=== PATIENT | female | born 1950 | race Caucasian/White ===

== ENCOUNTER 2017-06-09 09:20 | Day surgery (SDC) | payer MEDICARE, OTHER ==
[~2017-06-09 09:20] MED LIST: BUPIVACAINE HCL 0.75% INJ/PF (7.5 MG/1 ML) 10 ML SDV OD PRN; CHONDR SU A NA/HYALUR INTRAOC KIT (SURGICARE) ONE; EPINEPHRINE INJ/PF 1 MG/1 ML AMPULE ONE; KETOROLAC TROMETHAMINE 0.45% 4 DROP/0.4 ML DROPERETTE OD PRN; LIDOCAINE 1% INJ-PF (10 MG/ML) 30 ML SDV ONE; LIDOCAINE 4% INJ/PF (40 MG/ML) 5 ML AMPUL OD PRN
[2017-06-09] MEDS: TROPICAMIDE 1% OPH SOLN 3 ML OD PRN ×3 (09:47→10:14)
[2017-06-09] MEDS: BESIFLOXACIN HCL 0.6% OPH SUSP 5 ML BOTTLE OD PRN ×3 (09:48→11:12)
[2017-06-09] MEDS: CYCLOPENTOLATE 0.2%/PHENYLEPHRINE 1% OPH SOLN 2 ML OD PRN ×3 (09:48→10:14)
[2017-06-09] MEDS: TETRACAINE HCL 0.5% OPH SOLN 0.6 ML DROPERETTE OD PRN ×2 (09:49→10:16)
[2017-06-09] MEDS ORDERED: MIDAZOLAM 2 MG/2 ML INJ ONE (10:18)
[2017-06-09] MEDS ORDERED: FENTANYL CITRATE INJ/PF 100 MCG/2 ML AMPUL ONE (10:18)
--- NOTE | 2017-06-09 11:29 | [facility] OPERATIVE REPORT E ---
[facility] Operative Report NAME: JOE BERRY AGE: 67Y DATE OF SURGERY: 06/09/2017 ROOM: PREOPERATIVE DIAGNOSIS: Cataract, right eye. POSTOPERATIVE DIAGNOSIS: Cataract, right eye. PROCEDURE PERFORMED: Phacoemulsification with toric intraocular lens, right eye. SURGEON: Beth David MD ANESTHESIA: Topical with MAC plus intraocular. PROCEDURE: The patient was brought to the operating room and placed on the operative table. Following tetracaine drops, topical anesthesia was administered. This consisted of instrument wipe pledgets soaked in a solution of 4% Xylocaine mixed with 0.75% Marcaine in a 1:2 ratio. A 2 x 1 cm pledget was placed in the superior fornix. A 1 x 1 cm pledget was placed in the inferior fornix. The eye was patched shut for 5 minutes. The patch was removed. The eye was sterilely prepped and draped in the usual manner. Lid speculum was placed in the eye. The pledgets were removed. 4-0 black silk sutures were placed around the superior and the inferior rectus muscles to be used as traction. A conjunctival peritomy was made at the 10 o'clock position. Hemostasis was obtained with bipolar cautery. A posterior limbal groove was created using a crescent knife and dissected anteriorly towards the cornea. A sharp point blade was used to create a paracentesis site at the 2 o'clock position. A 2.4 mm keratome was used to enter the anterior chamber through the groove. Viscoelastic was injected into the anterior chamber. An anterior capsulotomy was performed using Utrata forceps in a capsulorrhexis fashion. Hydrodissection and hydrodelineation were performed. Phacoemulsification was performed in pajyry-peb-fcogszi technique. A total of 42 seconds phaco time was used. Following this, the I/A unit was used to remove residual cortex. Viscoelastic was injected into the capsular bag. Intraocular lens model [id number], 14.5 diopters, serial number [id number] was placed in the capsular bag. The I/A unit was used to remove residual viscoelastic. The wound was seen to be watertight under high and low pressure, and no sutures were placed. The intraocular lens was well centered. The pressure was adjusted in the eye to normal pressure. The 4-0 black silk sutures and lid speculum were removed. The eye was shielded after Besivance drops were placed. The patient tolerated the procedure well and was sent to the recovery room in good condition. Prior to the beginning of the surgery, patient was placed in the seated position and the 0, 270, and 180 degree axis of the eye was marked using a marking level. Prior to placing the lens implant, the 35-degree axis was marked on the eye and the lens was centered at this axis. DICTATING PHYSICIAN: BETH DAVID M.D. [id number] PHY#: [id number] ID: [id number] JOB#: [id number] ACCT: [id number] cc:BETH DAVID M.D. >
--- NOTE | 2017-06-09 11:29 | [facility] DISCHARGE SUMMARY E ---
[facility] Discharge Summary NAME: JOE BERRY AGE: 67Y ADMITTED: 06/09/2017 DISCHARGED: 06/09/2017 PREOPERATIVE DIAGNOSIS: Cataract, right eye. POSTOPERATIVE DIAGNOSIS: Cataract, right eye. HOSPITAL COURSE: The patient is a 67-year-old lady who underwent uneventful cataract extraction with toric intraocular lens implant, right eye, on 06/09/2017. She will be discharged to home. She was instructed to resume preoperative medications, take Tylenol as needed for discomfort, to keep her eye shielded, to use Besivance, Durezol, and Ilevro at 3 p.m. and 8 p.m., and to followup in my office in 1 day. DICTATING PHYSICIAN: LACI DAVID M.D. [id number] PHY#: [id number] ID: [id number] JOB#: [id number] ACCT: [id number] cc:LACI DAVID M.D. >
[2017-06-09] MEDS ORDERED: ONDANSETRON HCL INJ/PF 4 MG/2 ML SDV ONE (11:41)
[2017-06-09] MEDS ORDERED: PROMETHAZINE HCL INJ 25 MG/1 ML VIAL ONE (12:04)
== END 2017-06-09 13:18 | disposition home or self-care (01) ==
LOC: SC 09:20
PROVIDERS: ATTEND Ophthalmology
PROC: 08RJ3JZ Replacement of Right Lens with Synthetic Substitute, Percutaneous Approach (ICD-10-PCS; principal; 2017-06-09 11:00)
DX: H25.813 Combined forms of age-related cataract, bilateral (principal); H40.013 Open angle with borderline findings, low risk, bilateral; H43.813 Vitreous degeneration, bilateral; I10 Essential (primary) hypertension; M19.90 Unspecified osteoarthritis, unspecified site; Z88.8 Allergy status to other drugs, medicaments and biological substances; Z79.82 Long term (current) use of aspirin; Z79.899 Other long term (current) drug therapy
CPT/HCPCS: 66984; V2787; J2250; J3490 ×4; J0171; J3010; J2550; J2405; 142

== ENCOUNTER 2017-07-07 10:29 | Day surgery (SDC) | payer OTHER ==
[~2017-07-07 10:29] MED LIST changes: -BUPIVACAINE HCL 0.75% INJ/PF (7.5 MG/1 ML) 10 ML SDV OD PRN; +BUPIVACAINE HCL 0.75% INJ/PF (7.5 MG/1 ML) 10 ML SDV OS PRN; -KETOROLAC TROMETHAMINE 0.45% 4 DROP/0.4 ML DROPERETTE OD PRN; +KETOROLAC TROMETHAMINE 0.45% 4 DROP/0.4 ML DROPERETTE OS PRN; -LIDOCAINE 1% INJ-PF (10 MG/ML) 30 ML SDV ONE; -LIDOCAINE 4% INJ/PF (40 MG/ML) 5 ML AMPUL OD PRN; +MIDAZOLAM 2 MG/2 ML INJ ONE
[2017-07-07] MEDS: TROPICAMIDE 1% OPH SOLN 3 ML OS PRN ×3 (10:58→11:33)
[2017-07-07] MEDS: CYCLOPENTOLATE 0.2%/PHENYLEPHRINE 1% OPH SOLN 2 ML OS PRN ×3 (10:58→11:33)
[2017-07-07] MEDS: BESIFLOXACIN HCL 0.6% OPH SUSP 5 ML BOTTLE OS PRN ×2 (10:59→11:34)
[2017-07-07] MEDS: TETRACAINE HCL 0.5% OPH SOLN 0.6 ML DROPERETTE OS PRN ×2 (11:00→11:34)
[2017-07-07] MEDS ORDERED: EPINEPHRINE INJ/PF 1 MG/1 ML AMPULE ONE (11:19)
[2017-07-07] MEDS ORDERED: ONDANSETRON HCL INJ/PF 4 MG/2 ML SDV ONE (11:36)
[2017-07-07] MEDS: LIDOCAINE 4% INJ/PF (40 MG/ML) 5 ML AMPUL OS PRN ×2 (11:48→11:57)
--- NOTE | 2017-07-07 12:39 | [facility] OPERATIVE REPORT E ---
[facility] Operative Report NAME: JOE BERRY AGE: 67Y DATE OF SURGERY: 07/07/2017 ROOM: PREOPERATIVE DIAGNOSES: 1. Cataract, left eye. 2. Astigmatism, left eye. POSTOPERATIVE DIAGNOSES: 1. Cataract, left eye. 2. Astigmatism, left eye. PROCEDURE PERFORMED: Phacoemulsification with toric intraocular lens implant, left eye. SURGEON: Beth David MD ANESTHESIA: Topical with MAC plus intraocular lidocaine. PROCEDURE: The patient was brought to the operating room and placed on the operative table. Following tetracaine drops, topical anesthesia was administered. This consisted of instrument wipe pledgets soaked in a solution of 4% Xylocaine mixed with 0.75% Marcaine in a 1:2 ratio. A 2 x 1 cm pledget was placed in the superior fornix. A 1 x 1 cm pledget was placed in the inferior fornix. The eye was patched shut for 5 minutes. The patch was removed. The eye was sterilely prepped and draped in the usual manner. Lid speculum was placed in the eye. The pledgets were removed. 4-0 black silk sutures were placed around the superior and the inferior rectus muscles to be used as traction. A conjunctival peritomy was made at the 10 o'clock position. Hemostasis was obtained with bipolar cautery. A posterior limbal groove was created using a crescent knife and dissected anteriorly towards the cornea. A sharp point blade was used to create a paracentesis site at the 2 o'clock position. A 2.4 mm keratome was used to enter the anterior chamber through the groove. Viscoelastic was injected into the anterior chamber. An anterior capsulotomy was performed using Utrata forceps in a capsulorrhexis fashion. Hydrodissection and hydrodelineation were performed. Phacoemulsification was performed in ysblqp-whz-lxcddcl technique. A total of 8.17 CDE phaco time was used. Following this, the I/A unit was used to remove residual cortex. Viscoelastic was injected into the capsular bag. Intraocular lens model [id number], 18.5 diopters, serial number [id number] was placed in the capsular bag. The I/A unit was used to remove residual viscoelastic. The wound was seen to be watertight under high and low pressure, and no sutures were placed. The intraocular lens was well centered. The pressure was adjusted in the eye to normal pressure. The 4-0 black silk sutures and lid speculum were removed. The eye was shielded after Besivance drops were placed. The patient tolerated the procedure well and was sent to the recovery room in good condition. Prior to the surgery, patient was placed in the seating position and the 0, 270, and 180 degree axis of the eye was marked using a marking level. Prior to placing the lens implant, the 120 degree axis was marked on the eye using the previously marked sites as reference. The lens was centered at this axis. DICTATING PHYSICIAN: BETH DAVID M.D. [id number] PHY#: [id number] ID: [id number] JOB#: [id number] ACCT: [id number] cc:BETH DAVID M.D. >
--- NOTE | 2017-07-07 12:39 | [facility] DISCHARGE SUMMARY E ---
[facility] Discharge Summary NAME: JOE BERRY AGE: 67Y ADMITTED: 07/07/2017 DISCHARGED: 07/07/2017 PREOPERATIVE DIAGNOSES: 1. Cataract, left eye. 2. Astigmatism, left eye. POSTOPERATIVE DIAGNOSES: 1. Cataract, left eye. 2. Astigmatism, left eye. HOSPITAL COURSE: The patient is a 67-year-old lady who underwent uneventful cataract extraction with toric intraocular lens implant, left eye, on 07/07/2017. She will be discharged to home. She was instructed to resume preoperative medications, take Tylenol as needed for discomfort, to keep her eye shielded, to use Besivance, Durezol, and Ilevro at 3 p.m. and 8 p.m., and to followup in my office in 1 day. In addition, to use Combigan at 3 p.m. and 8 p.m. DICTATING PHYSICIAN: LACI DAVID M.D. [id number] PHY#: [id number] ID: [id number] JOB#: [id number] ACCT: [id number] cc:LCAI DAVID M.D. >
== END 2017-07-07 13:12 | disposition home or self-care (01) ==
LOC: SC 10:29
PROVIDERS: ATTEND Ophthalmology
DX: H25.812 Combined forms of age-related cataract, left eye (principal); H52.202 Unspecified astigmatism, left eye; Z96.1 Presence of intraocular lens; I10 Essential (primary) hypertension; Z79.899 Other long term (current) drug therapy; Z88.8 Allergy status to other drugs, medicaments and biological substances
CPT/HCPCS: 66984; V2787; J2250; J3490 ×3; J0171; J2405; 142

== ENCOUNTER 2018-11-25 06:46 | Day surgery (SDC) | payer OTHER ==
[2018-11-24 11:03] LABS: HEMATOCRIT 40.6 % (36.0-47.0); HEMOGLOBIN 13.5 g/dL (12.0-15.5); MEAN CORPUSCULAR HEMOGLOBIN 30.1 pg (27.0-33.4); MEAN CORPUSCULAR HGB CONC 33.2 g/dL (32.0-36.0); MEAN CORPUSCULAR VOLUME 91 fl (80-97); PLATELET COUNT 219 10^3/uL (150-450); RED BLOOD COUNT 4.48 10^6/uL (3.72-5.28); RED CELL DISTRIBUTION WIDTH 13.5 % (11.5-14.0); WHITE BLOOD COUNT 4.7 10^3/uL (4.0-10.5)
[2018-11-24 11:08] LABS: APPEARANCE,URINE CLEAR; BILIRUBIN,URINE NEGATIVE (NEGATIVE); COLOR,URINE YELLOW; GLUCOSE, URINE NEGATIVE (NEGATIVE); KETONES,URINE NEGATIVE (NEGATIVE); LEUKOCYTE ESTERASE,URINE LARGE (NEGATIVE); NITRITE,URINE NEGATIVE (NEGATIVE); PROTEIN,URINE NEGATIVE (NEGATIVE); URINE SPECIFIC GRAVITY 1.018; UROBILINOGEN,URINE NEGATIVE mg/dL (<2.0)
[2018-11-24 11:33] LABS: ALBUMIN 4.5 g/dL (3.5-5.0); ALKALINE PHOSPHATASE 89 U/L (38-126); ANION GAP 6 (5-19); ASPARTATE AMINO TRANSFERASE 26 U/L (14-36); BILIRUBIN,DIRECT 0.2 mg/dL (0.0-0.4); BILIRUBIN,TOTAL 0.4 mg/dL (0.2-1.3); BLOOD UREA NITROGEN 23 mg/dL (7-20); CALCIUM 9.2 mg/dL (8.4-10.2); CARBON DIOXIDE 30 mmol/L (22-30); CHLORIDE 103 mmol/L (98-107); GLUCOSE 89 mg/dL (75-110); POTASSIUM 4.5 mmol/L (3.6-5.0)
--- NOTE | 2018-11-24 12:07 | RADIOLOGY REPORT (SQ) ---
EXAM DESCRIPTION: CHEST PA/LATERAL COMPLETED DATE/TIME: 11/24/2018 11:01 am REASON FOR STUDY: PRE-OP COMPARISON: None. EXAM PARAMETERS: NUMBER OF VIEWS: two views TECHNIQUE: Digital Frontal and Lateral radiographic views of the chest acquired. RADIATION DOSE: NA LIMITATIONS: none FINDINGS: LUNGS AND PLEURA: No opacities, masses or pneumothorax. No pleural effusion. MEDIASTINUM AND HILAR STRUCTURES: No masses or contour abnormalities. HEART AND VASCULAR STRUCTURES: Heart normal size. No evidence for failure. Aortic atherosclerosis p er BONES: No acute findings. Mild anterior wedging of the lower thoracic vertebral body, likely physiol ogic. HARDWARE: None in the chest. OTHER: No other significant finding. IMPRESSION: No evidence of acute cardiopulmonary process. TECHNICAL DOCUMENTATION: JOB ID: [id number] [employer]- All Rights Reserved Reading location - IP/workstation name: [email or web address]
--- NOTE | 2018-11-24 14:37 | EKG REPORT ---
SEVERITY:- BORDERLINE ECG - SINUS RHYTHM PROBABLE LEFT ATRIAL ABNORMALITY : Confirmed by: Kieran Taylor 24-Nov-2018 14:37:06
[~2018-11-25 06:46] MED LIST changes: -BUPIVACAINE HCL 0.75% INJ/PF (7.5 MG/1 ML) 10 ML SDV OS PRN; +CEFAZOLIN 1 GM/D5W RTU 1 GM/50 ML RTUPB IV ONE; +CEFAZOLIN 1 GM/D5W RTU 1 GM/50 ML RTUPB IV PRN; -CHONDR SU A NA/HYALUR INTRAOC KIT (SURGICARE) ONE; -EPINEPHRINE INJ/PF 1 MG/1 ML AMPULE ONE; -KETOROLAC TROMETHAMINE 0.45% 4 DROP/0.4 ML DROPERETTE OS PRN; +LIDOCAINE 0.5% INJ-PF (5 MG/ML) 50 ML SDV SUBCUT PRN; -MIDAZOLAM 2 MG/2 ML INJ ONE; +RINGERS SOLUTION,LACTATED 1,000 ML IV PRN
[2018-11-25] MEDS ORDERED: MIDAZOLAM 2 MG/2 ML INJ ONE (06:52)
[2018-11-25] MEDS ORDERED: PROPOFOL INJ 200 MG/20 ML VIAL IV ONE (06:52)
[2018-11-25] MEDS ORDERED: FENTANYL CITRATE INJ/PF 100 MCG/2 ML AMPUL ONE (06:52)
[2018-11-25] MEDS ORDERED: HYDROMORPHONE HCL INJ/PF 2 MG/ML AMPULE ONE (06:52)
[2018-11-25] MEDS ORDERED: SCOPOLAMINE HYDROBROMIDE 1.5 MG PATCH.TD72 ONE (07:43)
[2018-11-25] MEDS ORDERED: FAMOTIDINE INJ/PF 20 MG/2 ML SDV IV ONE (07:43)
[2018-11-25] MEDS ORDERED: METOCLOPRAMIDE HCL INJ/PF 10 MG/2 ML SDV ONE (07:43)
[2018-11-25] MEDS ORDERED: BUPIVACAINE HCL 0.25% /EPINEPHRINE INJ/PF 30 ML SDV ONE (08:24)
[2018-11-25] MEDS ORDERED: METHYLENE BLUE 50 MG/10 ML AMPULE ONE (08:24)
[2018-11-25] MEDS ORDERED: LIDOCAINE 1%/EPINEPHRINE INJ 20 ML VIAL ONE (08:24)
[2018-11-25] MEDS ORDERED: PROMETHAZINE HCL INJ 25 MG/1 ML VIAL ONE (08:54)
[2018-11-25] MEDS ORDERED: DIPHENHYDRAMINE HCL 50 MG/ML VIAL IV PRN (09:22)
[2018-11-25] MEDS ORDERED: MEPERIDINE HCL/PF INJ 25 MG/1 ML DISP.SYRIN IV PRN (09:22)
[2018-11-25] MEDS ORDERED: ONDANSETRON HCL INJ/PF 4 MG/2 ML SDV IV PRN (09:22)
[2018-11-25] MEDS ORDERED: MORPHINE SULFATE 10 MG/ML INJ IV PRN ×2 (09:22→11:27)
[2018-11-25] MEDS ORDERED: OXYCODONE-ACETAMINOPHEN 5-325 MG TABLET PO PRN ×3 (09:22→11:31)
[2018-11-25] MEDS ORDERED: ESTROGENS,CONJUGATED 0.625 MG/1 GM 30 GM TUBE PV ONE ×2 (09:30)
[2018-11-25] MEDS ORDERED: ACETAMINOPHEN 1,000 MG/100 ML RTUPB IV ONE (10:59)
[2018-11-25] MEDS ORDERED: RINGERS SOLUTION,LACTATED 1,000 ML IV PRN (11:30)
--- NOTE | 2018-11-25 12:39 | Operative Report ---
Operative Report DATE OF SURGERY: 11/25/18 PREOPERATIVE DIAGNOSIS: uterovaginal prolapse, pelvic pain POSTOPERATIVE DIAGNOSIS: utervaginal prolapse, pelvic pain OPERATION: total vaginal hysterectomy with b/l partial salpingectomy, uterosacral suspension, anterior and posterior vaginal repair SURGEON: TORY SHERMAN 1ST WAX ROOM SUPERVISOR: JOSE ARMANDO CABRERA ANESTHESIA: GA TISSUE REMOVED OR ALTERED: uterus, cervix and partial bilateral fallopian tubes COMPLICATIONS: none ESTIMATED BLOOD LOSS: 200 cc INTRAOPERATIVE FINDINGS: 6 wk uterus, grade 3 uterovaginal prolapse, small ovaries that were poorly visible amongst bowel. PROCEDURE: patient was taken to the operating room where she was prepared and drapped in a normal sterile fashion in dorsal lithotomy position using candy cane stirrups. Alberto catheter was placed to gravity. Short weighted speculum was placed in the patient's posterior fourchette. Her retractor was placed in the anterior fourchette. And the cervix was grasped on the anterior and posterior aspect using 2 triple tooth lehes. The cervix was injected with quarter percent lidocaine with epinephrine approximately 10 cc in a circumferential fashion. Lidocaine was massaged into the mucosa. Mucosa was then scored using a 10 blade around the cervix. And the mucosa was then dissected sharply from the cervix using Viramontes's and blunt dissection. Posterior cul-de-sac was then entered sharply using the Mayos and the short weighted speculum was replaced with a long weighted speculum into the posterior cul-de-sac. The anterior cul-de-sac was then entered sharply with Viramontes's and the Kris blade was placed in the anterior cul-de-sac to hold the bladder away. The uterosacral ligaments were then clamped on both sides and suture ligated with 0 Vicryl. The rest of the uterine artery supply was ligated using LigaSure. The fundus of the uterus was noted and the mesosalpinx of the fallopian tubes were divided using the LigaSure. Done on both sides until the specimen was able to be freed by transecting the remnants of the fallopian tube with the LigaSure. Hemostasis was maintained throughout this process. The ovaries were unable to be located. There is size seem to be quite small from what small visibility I had. When searching for the ovaries I was not able to locate them easily through the bowel fallopian tube remnants and ovaries were left intact. Dike blade was removed from the anterior cul-de-sac bladder was inspected and found to be undamaged . The long weighted speculum was again replaced with a short weighted speculum. The cuff was then closed with a running lock stitch of 0 Vicryl. Attention was then turned to the posterior repair. The posterior vaginal mucosa was grasped with 2 Allises midline. Midline was then injected with quarter percent lidocaine with epi. In the mucosa was scored with a 15 blade and d issected away from the rectum vaginal mucosa using Metzenbaums and blunt dissection. Port sutures of 0 Vicryl were placed in a bridge fashion over the rectocele. Excess mucosa was trimmed and the mucosa was closed with a 2-0 Vicryl. We then turned our attention to the anterior portion of the case where in a similar fashion 2 Allis clamps were used to grasp the anterior mucosa starting approximately 2 cm below the urethral introitus. Continued to the cuff closure midline was injected with lidocaine quarter percent with epi line was then scored with a 15 blade and the mucosa was dissected sharply and bluntly using Metzenbaums and blunt dissection. Once the defects were adequate and the uterosacral ligament remnant could be palpated on the patient's right and anchor stitch was deployed into the right uterosacral ligament. The anchor stitch was then adhered to the anterior apex and the vesicovaginal mucosa tear repair was then completed with 3 bridge sutures of 2-0 Vicryl and the vesicovaginal mucosa. [place] stitch was then tied down and the mucosa was trimmed and closed using 2- 0 Vicryl. Good support was noted at this time it was then packed with a Kerlix covered in Premarin cream. Patient tolerated procedure well sponge lap and needle counts were correct x2 and patient was taken to recovery in stable condition.
[2018-11-25] MEDS ORDERED: KETOROLAC TROMETHAMINE INJ/PF 30 MG/1 ML SDV IV SCH (14:00)
[2018-11-25] MEDS ORDERED: SUCCINYLCHOLINE CHLORIDE INJ 200 MG/10 ML VIAL ONE (14:10)
[2018-11-25] MEDS ORDERED: KETOROLAC TROMETHAMINE 60 MG/2 ML SDV ONE (14:10)
[2018-11-25] MEDS ORDERED: ONDANSETRON HCL INJ/PF 4 MG/2 ML SDV ONE (14:10)
[2018-11-25] MEDS ORDERED: ROCURONIUM BROMIDE INJ 50 MG/5 ML VIAL IV ONE (14:10)
[2018-11-25] MEDS ORDERED: DEXAMETHASONE SOD PHOSPHATE INJ 4 MG/1 ML VIAL ONE (14:10)
[2018-11-25] MEDS ORDERED: PHENYLEPHRINE HCL INJ/PF 10 MG/1 ML SDV ONE (14:10)
[2018-11-25] MEDS ORDERED: ACETAMINOPHEN INJ/PF 1000 MG/100 ML SDV IV ONE (17:00)
[2018-11-25] MEDS: KETOROLAC TROMETHAMINE INJ/PF 30 MG/1 ML SDV IV SCH (17:51)
[2018-11-25] MEDS: ATORVASTATIN CALCIUM 10 MG TABLET PO SCH (21:12)
[2018-11-25] MEDS: AMITRIPTYLINE HCL 25 MG TABLET PO SCH (21:12)
[2018-11-26] MEDS: KETOROLAC TROMETHAMINE INJ/PF 30 MG/1 ML SDV IV SCH ×2 (01:36→15:29)
[2018-11-26 06:06] LABS: HEMATOCRIT 37.5 % (36.0-47.0); HEMOGLOBIN 12.5 g/dL (12.0-15.5); MEAN CORPUSCULAR HEMOGLOBIN 30.1 pg (27.0-33.4); MEAN CORPUSCULAR HGB CONC 33.3 g/dL (32.0-36.0); MEAN CORPUSCULAR VOLUME 90 fl (80-97); PLATELET COUNT 205 10^3/uL (150-450); RED BLOOD COUNT 4.15 10^6/uL (3.72-5.28); RED CELL DISTRIBUTION WIDTH 13.4 % (11.5-14.0)
[2018-11-26 06:18] LABS: WHITE BLOOD COUNT 13.9 10^3/uL (4.0-10.5)
[2018-11-26] MEDS ORDERED: IBUPROFEN 800 MG TABLET PO PRN (14:00)
[2018-11-26] MEDS: AMITRIPTYLINE HCL 25 MG TABLET PO SCH (21:03)
[2018-11-26] MEDS: ATORVASTATIN CALCIUM 10 MG TABLET PO SCH (21:03)
[2018-11-27 08:12] VITALS: BP 138/58
--- NOTE | 2018-11-27 08:45 | PDOC PROGRESS REPORT ---
Subjective Progress Note for:: 11/26/18 Subjective:: bleeding after vaginal packing removed Reason For Visit: N81.4 UTEROVAGINAL PROLAPSE, UNSPECIFIED Physical Exam - Physical Exam Vital Signs: Temp Pulse Resp BP Pulse Ox 97.8 F 96 18 144/84 H 100 11/27/18 07:42 11/27/18 07:42 11/27/18 07:42 11/27/18 07:42 11/27/18 07:42 Intake & Output 11/26/18 11/27/18 11/28/18 06:59 06:59 06:59 Intake Total 2100 700 Output Total 2300 Balance -200 700 Weight 66 kg General appearance: PRESENT: no acute distress, cooperative - Gynecological Exam Labia: normal, other - blood on labia Urethra: normal Introitus: normal, other Perineum: normal, other - bloody clots on perineum Vagina: normal, other - bleeding at vaginal cuff Cervix: other - absent Result Laboratory Results: 11/26/18 04:51 11/24/18 09:51 Impressions: Chest X-Ray 11/24/18 00:00 IMPRESSION: No evidence of acute cardiopulmonary process. Assessment & Plan - Diagnosis (3) Post-operative complication Qualifiers: Surgical complication type: other Is this a current diagnosis for this admission?: Yes - Time Time Spent with patient: 25-34 minutes Anticipated discharge: Home Within: within 24 hours - Inpatient Certification Based on my medical assessment, after consideration of the patient's comorbidities, presenting symptoms, or acuity I expect that the services needed warrant INPATIENT care.: Yes I certify that my determination is in accordance with my understanding of Medicare's requirements for reasonable and necessary INPATIENT services [42 CFR 412.3e].: Yes Medical Necessity: Need Close Monitoring Due to Risk of Patient Decompensation - Plan Summary Plan Summary: Monsel's applied generously to vaginal cuff. Will watch overnight for improvement or decomplensation. If does not improve and bleeding continues, plan for kerlex packing placement, make NPO after midnight and plan OR revision of cuff. If bleeding ceases, will discharge home in AM.
--- NOTE | 2018-11-27 08:49 | PDOC DISCHARGE SUMMARY ---
General - Admit/Disc Date/PCP Admission Date/Primary Care Provider: ALEX OLVERA MD Discharge Date: 11/27/18 - Discharge Diagnosis (1) Uterovaginal prolapse, complete Is this a current diagnosis for this admission?: Yes (2) Pelvic pain Is this a current diagnosis for this admission?: Yes (3) Post-operative complication Is this a current diagnosis for this admission?: Yes - Additional Information Resuscitation Status: Full Code Discharge Diet: As Tolerated Discharge Activity: Balance Activity w/Rest, No Driving, No Lifting Over 10 Pounds, Pelvic Rest, No tub bath Prescriptions: Oxycodone HCl/Acetaminophen [Percocet 5-325 mg Tablet] 1 tab PO Q4HP PRN #14 tablet PRN Reason: Ibuprofen [Motrin 800 mg Tablet] 800 mg PO Q8HP PRN #60 tablet PRN Reason: Home Medications: Amitriptyline HCl 25 mg PO QHS 06/05/17 Calcium Carbonate/Vitamin D3 [Calcium 1,000 + D3 Caplet] 1 tab-cap PO DAILY 06/05/17 Cholecalciferol (Vitamin D3) [Vitamin D3 1000 Unit Tablet] 1,000 unit PO DAILY 06/05/17 Meclizine HCl 25 mg PO ASDIR PRN 06/05/17 Metoprolol Tartrate 25 mg PO BID 06/05/17 Rizatriptan Benzoate [Rizatriptan] 10 mg PO ASDIR PRN 06/05/17 Alendronate Sodium [Fosamax 70 mg Tablet] 1 tab PO ASDIR 11/22/18 Atorvastatin Calcium [Lipitor 10 mg Tablet] 1 tab PO QHS 11/22/18 Eletriptan HBr [Relpax] 1 tab PO DAILY PRN 11/22/18 Magnesium 1 tab PO DAILY 11/22/18 Ibuprofen [Motrin 800 mg Tablet] 800 mg PO Q8HP PRN #60 tablet 11/27/18 Oxycodone HCl/Acetaminophen [Percocet 5-325 mg Tablet] 1 tab PO Q4HP PRN #14 tablet 11/27/18 History of Present Illness History of Present Illness: JOE BERRY is a 68 year old female Hospital Course Hospital Course: underwent TVH w/ USS and A&P repair. Post operative complication of small bleeding at vaginal cuff. this was resolved with application of monsel's. Has had no further bleeding since and is tolerating regualr diet, voiding normally and desires discharge home Physical Exam - Physical Exam Vital Signs: Temp Pulse Resp BP Pulse Ox 97.8 F 96 18 144/84 H 100 11/27/18 07:42 11/27/18 07:42 11/27/18 07:42 11/27/18 07:42 11/27/18 07:42 Intake & Output 11/26/18 11/27/18 11/28/18 06:59 06:59 06:59 Intake Total 2100 700 Output Total 2300 Balance -200 700 Weight 66 kg General appearance: PRESENT: no acute distress, cooperative - Gynecological Exam Labia: normal, other - blood on labia Urethra: normal Introitus: normal, other Perineum: normal, other - bloody clots on perineum Vagina: normal, other - bleeding at vaginal cuff Cervix: other - absent Result Laboratory Results: 11/26/18 04:51 11/24/18 09:51 Impressions: Chest X-Ray 11/24/18 00:00 IMPRESSION: No evidence of acute cardiopulmonary process. Plan Discharge Plan: discharge home with strict instructions. Patient has follow up scheduled in [address] Card. Time Spent: Less than 30 Minutes Acute Heart Failure - Is this a Heart Failure Patient?: No
== END 2018-11-27 09:15 | disposition home or self-care (01) ==
LOC: OROUT 06:46 → 2N 12:00 → OROUT 11-27 09:15
PROVIDERS: ATTEND Obstetrics & Gynecology
DX: N81.4 Uterovaginal prolapse, unspecified (principal); R10.2 Pelvic and perineal pain; N88.8 Other specified noninflammatory disorders of cervix uteri; R23.4 Changes in skin texture; I10 Essential (primary) hypertension; Z79.899 Other long term (current) drug therapy; Z85.828 Personal history of other malignant neoplasm of skin
CPT/HCPCS: 93005; 86900; 86901; 36415 ×2; 86850; 85027 ×2; 80053; 81001; 88307 ×2; 71046; 93010; 00944; 58262; 57260; 58400; J2250; J3490 ×3; J0690; J1100; J1885 ×3; J2765; J1170; J2370; J2550; J0330; J2405; J2704; S0028; J0131; 944; J3010; Q9968